=== PATIENT | male | born 1995 | race Caucasian/White ===

== ENCOUNTER 2023-10-05 21:37 | Emergency (ER) | payer SELFPAY ==
[2023-10-05] MEDS: Bupivacaine 0.5% 10 ML SDV INJECT ONE (21:50)
[2023-10-05] MEDS: Lidocaine 1% 5 ML VIAL INJECT ONE (21:50)
[2023-10-05] MEDS: Amoxicillin/Clavulanate K 875-125 MG Tab PO ONE (21:55)
[2023-10-05] MEDS: Ondansetron 4 MG Tab.DIS PO ONE (22:05)
[2023-10-05] MEDS: Acetaminophen/HYDROcodone 325-5 MG Tab PO ONE (22:05)
== END 2023-10-05 22:08 | disposition home or self-care (01) ==
LOC: MW.ED 21:37
DX: K02.9 Dental caries, unspecified (principal); Z79.899 Other long term (current) drug therapy
CPT/HCPCS: 64400; 99282; A9270; J0665; 99283; J3490

== ENCOUNTER 2023-10-07 07:30 | Emergency (ER) | payer SELFPAY ==
[2023-10-07] MEDS: Lidocaine 5% Oint 35.44 GM Tube TOP ONE (08:12)
[2023-10-07] MEDS: Lidocaine 2% with EPINEPHrine 1:200,000 20 ML SDV INJECT ONE (08:15)
[2023-10-07] MEDS: Lidocaine 2% Viscous Solution 15 ML UD PO STA (08:17)
[2023-10-07] MEDS: Bupivacaine 0.25% 10 ML SDV INJECT ONE (08:17)
[2023-10-07] MEDS: Lidocaine 1% with EPINEPHrine 1:200,000 30 ML SDV ONE (08:18)
[2023-10-07] MEDS: Lidocaine 1% with EPINEPHrine 1:200,000 30 ML SDV INJECT STA (08:22)
== END 2023-10-07 09:35 | disposition home or self-care (01) ==
LOC: MW.ED 07:30
DX: K08.89 Other specified disorders of teeth and supporting structures (principal); K03.2 Erosion of teeth; F17.210 Nicotine dependence, cigarettes, uncomplicated; Z75.8 Other problems related to medical facilities and other health care; Z79.899 Other long term (current) drug therapy
CPT/HCPCS: 41008; 99282; A9270; J3490; 64400; 99283

== ENCOUNTER 2023-10-07 22:22 | Emergency (ER) | payer SELFPAY ==
[2023-10-07] MEDS: Lidocaine 1% 5 ML VIAL INJECT ONE (22:58)
[2023-10-07] MEDS: Bupivacaine 0.5% 10 ML SDV INJECT ONE (22:58)
== END 2023-10-07 23:17 | disposition home or self-care (01) ==
LOC: MW.ED 22:22
DX: K08.89 Other specified disorders of teeth and supporting structures (principal); Z79.899 Other long term (current) drug therapy
CPT/HCPCS: 64400; 99282; J0665; J3490

== ENCOUNTER 2024-05-10 16:10 | Emergency (ER) | payer SELFPAY | END 2024-05-10 17:00 | disposition left against medical advice (07) | LOC: MW.ED 16:10 | DX: Z53.21 Procedure and treatment not carried out due to patient leaving prior to being seen by health care provider (principal) ==

== ENCOUNTER 2024-06-07 18:45 | Emergency (ER) | payer SELFPAY | END 2024-06-07 20:45 | disposition home or self-care (01) | LOC: MW.ED 18:45 | DX: K52.9 Noninfective gastroenteritis and colitis, unspecified (principal) | CPT/HCPCS: 99283 ==

== ENCOUNTER 2024-09-06 14:03 | Emergency (ER) | payer SELFPAY ==
[2024-09-06 15:25] LABS: APPEARANCE,URINE CLEAR; COLOR,URINE ORANGE; GLUCOSE,URINE NEGATIVE (NEGATIVE); KETONES,URINE 15 mg/dL (NEGATIVE); LEUKOCYTE ESTERASE,URINE NEGATIVE (NEGATIVE); NITRITE,URINE NEGATIVE (NEGATIVE); OCCULT BLOOD,URINE NEGATIVE (NEGATIVE); PH,URINE 5.5 (5.0-8.0); PROTEIN,URINE 30 mg/dL (NEGATIVE); UROBILINOGEN,URINE 0.2 EU/dL (<2.0)
[2024-09-06 15:35] LABS: BILIRUBIN,URINE MODERATE (NEGATIVE)
[2024-09-06 15:36] LABS: BACTERIA,URINE FEW (NEGATIVE); EPITHELIAL CELLS,URINE RARE (NONE-FEW); MUCUS,URINE RARE (NONE-MOD); RBC,URINE 0-1 (0-2/HPF); WBC,URINE 0-1 (0-5/HPF)
[2024-09-06 16:16] LABS: HIV12 AG/AB 4TH GEN W/REFLEX < 0.1 INDEX (<1.0)
[2024-09-06 16:54] LABS: C. TRACHOMATIS BY PCR NOT DETECTED; N. GONORRHOEAE BY PCR NOT DETECTED
== END 2024-09-06 16:19 | disposition home or self-care (01) ==
LOC: MW.ED 14:03
DX: N49.2 Inflammatory disorders of scrotum (principal); Z20.2 Contact with and (suspected) exposure to infections with a predominantly sexual mode of transmission
CPT/HCPCS: 36415; 81001; 86592; 86803; 87389; 87491; 87591; 99283